=== PATIENT | female | born 1950 | race Caucasian/White ===

== ENCOUNTER 2017-03-11 08:37 | Outpatient (CLI) | payer MEDICARE, OTHER ==
[2017-03-11 09:45] LABS: eGFR (African) > 60; eGFR (Non-African) > 60
== END 2017-03-11 08:40 ==
LOC: LAB 08:37
PROVIDERS: ATTEND Family Medicine
DX: E78.2 Mixed hyperlipidemia (principal); M89.9 Disorder of bone, unspecified
CPT/HCPCS: 36415; 80053; 80061; 82306

== ENCOUNTER 2017-03-31 08:38 | Outpatient (CLI) | payer MEDICARE, OTHER ==
[2017-03-31 09:25] LABS: eGFR (African) > 60; eGFR (Non-African) > 60
== END 2017-03-31 08:40 ==
LOC: LAB 08:38
PROVIDERS: ATTEND Family Medicine
DX: E87.1 Hypo-osmolality and hyponatremia (principal)
CPT/HCPCS: 36415; 80048

== ENCOUNTER 2018-03-23 07:19 | Day surgery (SDC) | payer MEDICARE, OTHER ==
[2018-03-23] MEDS ORDERED: PROPOFOL 200 MG/20 ML VIAL IV ONE (08:48)
[2018-03-23] MEDS ORDERED: LACTATED RINGERS 1,000 ML IV.SOLN IV ONE (08:48)
[2018-03-23] MEDS ORDERED: SALINE FLUSH 10 ML DISP.SYRIN IVF ONE (08:48)
--- NOTE | 2018-03-31 12:27 | GI Report ---
REFERRING PHYSICIAN: Dr. Smita Fonseca DRILLING ASSISTANT: Casimiro Marlow MD PROCEDURE MEDICATION: Propofol as per anesthesia. INDICATIONS: Patient is a 67-year-old woman who is referred for a screening. Her last colonoscopy was about 12 years ago. She denies any changes in bowel habits or bleeding. She denies a family history of colorectal cancer. She did have a rectocele surgery earlier in the year. She has had a previous partial hysterectomy. PROCEDURE PERFORMED: Colonoscopy. PROCEDURE: An Olympus video colonoscope was advanced to the rectum. In the sigmoid and descending colon, there was moderate diverticular disease. No obvious diverticulitis. The colonoscope was slowly advanced all the way to the cecum. The appendiceal orifice and terminal ileum were normal. On slow withdrawal, the cecum, ascending colon, and transverse colon had no obvious intraluminal lesions noted. Descending colon and sigmoid with scattered diverticular disease. Retroflexion of the rectum was normal. Patient tolerated the procedure well. FINDINGS: 1. Moderate diverticular disease of the sigmoid and descending colon. 2. Otherwise, normal colonoscopy. RECOMMENDATIONS: 1. Continue high-fiber diet. 2. Consider re-looking at her colon in 10 years, sooner if clinically indicated. cc: Dr. Smita VELEZ
== END 2018-03-23 07:20 ==
LOC: OPSURG 07:19
PROVIDERS: ATTEND Internal Medicine Gastroenterology
DX: K57.30 Diverticulosis of large intestine without perforation or abscess without bleeding (principal); Z12.11 Encounter for screening for malignant neoplasm of colon
CPT/HCPCS: G0121; J2704; J7120; S1016

== ENCOUNTER 2018-12-22 10:54 | Outpatient (CLI) | payer MEDICARE, OTHER ==
--- NOTE | 2018-12-22 11:48 | Diagnostic Imaging Report ---
JAMESON VIERA [facility] [address] [facility] [address] [place] [address]. [id number] Report Submission Date: Dec 22, 2018 11:31:00 AM CDT Patient Study Name: NEELA LESLIE Date: Dec 22, 2018 11:10:53 AM CDT Modality Type: DX Gender: F Description: C SPINE 2 OR 3 VIEWS : 52 Institution: [facility] Physician: JAMESON VIERA exam: Cervical spine. History: Pain. AP, lateral and open-mouth odontoid view of the cervical spine are submitted. Reversal of the normal lordotic curvature is identified. Disc space narrowing with endplate sclerosis and spurring at C5-6 and C6-7 levels is noted. The bony elements of the neural canal are intact. Well corticated irregularity at the odontoid process is noted which may represent old injury. Prevertebral soft tissues are normal. Facet joint degenerate changes along the left lateral aspect of the cervical spine is noted. Impression: Straightening of the normal lordotic curvature. Cervical spondylosis most marked at C5-6 and C6-7 levels with facet joint degenerate changes seen along the left lateral side of the cervical spine. Well corticated deformity to the odontoid process may indicate old injury. CT or MRI may be beneficial to further evaluate. Electronically signed on Dec 22, 2018 11:31:00 AM CDT by: Moises VELEZ
--- NOTE | 2018-12-22 12:05 | Diagnostic Imaging Report ---
JAMESON VIERA [facility] [address] [facility] [address] [place], [place]. [address] Report Submission Date: Dec 22, 2018 12:02:21 PM CDT Patient Study Name: NEELA LESLIE Date: Dec 22, 2018 11:37:59 AM CDT Modality Type: CT\SR Gender: F Description: CT C-SPINE W/O CONTRAS : 52 Institution: [facility] Physician: JAMESON VIERA Exam: CT cervical spine without contrast. History: Abnormal x-ray. Axial images through the cervical spine are submitted along with sagittal and coronal reformatted images. Well corticated deformity to the odontoid process is noted is suggestive of an old fracture. Clinical correlation is recommended. Reversal of the normal lordotic curvature in the lower cervical spine is noted. The vertebral body heights are adequately maintained. Disc space narrowing with endplate sclerosis and spurring is seen throughout the cervical spine but is most marked at C5-6 and C6-7 levels. The prevertebral soft tissues are normal. The bony elements of the neural canal are intact. In the axial images there is facet joint hypertrophy noted to the left at C3-4 level encroaching on the left intervertebral foramen. Facet joint hypertrophy to the left at several other cervical segments are noted. No bony canal stenosis is identified. Remaining intervertebral foramina are patent. Coincidentally a multinodular thyroid gland is noted. Impression: Well corticated deformity to the odontoid process suggestive of old fracture. Clinical correlation is recommended. Cervical spondylosis most marked at C5-6 and C6-7 levels. Facet joint hypertrophy to the left is seen at multiple cervical segments with encroachment on the left intervertebral foramen at C3-4 level noted. No canal stenosis is identified. Electronically signed on Dec 22, 2018 12:02:21 PM CDT by: Moises VELEZ
== END 2018-12-22 10:56 ==
LOC: LAB 10:54
PROVIDERS: ATTEND Family Medicine
DX: E78.2 Mixed hyperlipidemia (principal); M54.2 Cervicalgia; R93.7 Abnormal findings on diagnostic imaging of other parts of musculoskeletal system
CPT/HCPCS: 36415; 72040; 72125; 80061